=== PATIENT | female | born 1935 | race Caucasian/White ===

== ENCOUNTER 2017-09-21 16:11 | Emergency (ER) | payer MEDICARE, BC ==
[2017-09-21 19:06] LABS: ADD MAN DIFF? NO
[2017-09-21 19:09] LABS: BASOPHIL # 0.1 10^3/ul (0.0-0.1); EOSINOPHILS # 0.1 10^3/ul (0.0-0.5); EOSINOPHILS % 1.7 % (0.0-7.0); HEMATOCRIT 37.5 % (37.0-47.0); HEMOGLOBIN 12.6 g/dl (12.0-16.0); LYMPHOCYTES # 2.3 10^3/ul (0.8-2.9); LYMPHOCYTES % 32.3 % (15.0-51.0); MEAN CORPUSCULAR HEMOGLOBIN 32.6 pg (29.0-33.0); MEAN CORPUSCULAR HGB CONC 33.6 g/dl (32.0-37.0); MEAN CORPUSCULAR VOLUME 97.2 fl (82.0-101.0); MEAN PLATELET VOLUME 11.7 fl (7.4-10.4); MONOCYTE # 0.9 10^3/ul (0.3-0.9); MONOCYTES % 12.5 % (0.0-11.0); NEUTROPHIL # 3.7 10^3/ul (1.6-7.5); NEUTROPHILS % 52.2 % (39.0-77.0); PLATELET COUNT 168 10^3/UL (140-415); RED BLOOD COUNT 3.86 10^6/ul (4.20-5.40); RED CELL DISTRIBUTION WIDTH 14.1 % (11.5-14.5)
[2017-09-21 19:25] LABS: INR 1.11; PROTIME 14.5 Sec (11.9-14.9); PT RATIO 1.1
[2017-09-21 19:26] LABS: ANION GAP 18 (8-16); BLOOD UREA NITROGEN 27 mg/dl (7-20); CALCIUM 9.6 mg/dl (8.4-10.2); CARBON DIOXIDE 27 mmol/L (21-31); CHLORIDE 99 mmol/L (97-110); CREATININE 1.33 mg/dl (0.44-1.00); GLUCOSE 107 mg/dl (70-220); POTASSIUM 3.9 mmol/L (3.5-5.1); SODIUM 140 mmol/L (135-144)
[2017-09-21 19:38] LABS: B-TYPE NATRIURETIC PEPTIDE 494 PG/ML (0-450)
[2017-09-21 19:53] LABS: TROPONIN-I < 0.012 ng/ml (0.00-0.12)
== END 2017-09-21 20:46 | disposition home or self-care (01) ==
LOC: E/R 16:11
DX: R06.00 Dyspnea, unspecified (principal); I25.10 Atherosclerotic heart disease of native coronary artery without angina pectoris; I10 Essential (primary) hypertension
CPT/HCPCS: 36415; 71045; 80048; 83880; 84484; 85025; 85610; 85730; 93005; 99285-25

== ENCOUNTER 2017-09-22 14:49 | Observation (INO) | payer MEDICARE, BC ==
[2017-09-22] MEDS ORDERED: ACETAMINOPHEN 325 MG TAB PO (17:00)
[2017-09-22] MEDS ORDERED: ONDANSETRON 4 MG INJ IV (17:00)
[2017-09-22 17:03] LABS: ADD MAN DIFF? NO
[2017-09-22 17:09] LABS: WHITE BLOOD COUNT 7.1 10^3/ul (4.8-10.8)
[2017-09-22 17:09] LABS: BASOPHIL # 0.1 10^3/ul (0.0-0.1); EOSINOPHILS # 0.1 10^3/ul (0.0-0.5); EOSINOPHILS % 1.7 % (0.0-7.0); HEMATOCRIT 37.7 % (37.0-47.0); HEMOGLOBIN 12.6 g/dl (12.0-16.0); LYMPHOCYTES # 2.1 10^3/ul (0.8-2.9); LYMPHOCYTES % 29.7 % (15.0-51.0); MEAN CORPUSCULAR HEMOGLOBIN 32.6 pg (29.0-33.0); MEAN CORPUSCULAR HGB CONC 33.4 g/dl (32.0-37.0); MEAN CORPUSCULAR VOLUME 97.7 fl (82.0-101.0); MONOCYTE # 0.9 10^3/ul (0.3-0.9); MONOCYTES % 12.4 % (0.0-11.0); NEUTROPHIL # 3.9 10^3/ul (1.6-7.5); NEUTROPHILS % 54.9 % (39.0-77.0); PLATELET COUNT 171 10^3/UL (140-415); RED BLOOD COUNT 3.86 10^6/ul (4.20-5.40); RED CELL DISTRIBUTION WIDTH 14.3 % (11.5-14.5)
[2017-09-22] MEDS: SOD CHLORIDE 0.9% 1,000 ML IV (17:21)
[2017-09-22 17:26] LABS: ANION GAP 16 (8-16); BLOOD UREA NITROGEN 27 mg/dl (7-20); CALCIUM 9.8 mg/dl (8.4-10.2); CARBON DIOXIDE 30 mmol/L (21-31); CHLORIDE 99 mmol/L (97-110); CREATININE 1.42 mg/dl (0.44-1.00); GLUCOSE 105 mg/dl (70-220); POTASSIUM 3.8 mmol/L (3.5-5.1); SODIUM 141 mmol/L (135-144)
[2017-09-22] MEDS: ASPIRIN (EC) 81 MG TAB PO (17:30)
[2017-09-22] MEDS ORDERED: ONDANSETRON 4 MG TAB PO (17:30)
[2017-09-22] MEDS ORDERED: DOCUSATE SODIUM 100 MG CAP PO (17:30)
[2017-09-22] MEDS ORDERED: HYDROCODONE/APAP (5/325) TAB PO (17:30)
[2017-09-22] MEDS ORDERED: NACL 0.9% 3 ML SYG IV (17:30)
[2017-09-22] MEDS ORDERED: LORAZEPAM 0.5 MG TAB PO (17:30)
[2017-09-22 17:49] LABS: TROPONIN-I < 0.012 ng/ml (0.00-0.12)
[2017-09-22] MEDS: RANITIDINE 150 MG TAB PO (21:00)
[2017-09-22] MEDS ORDERED: METOPROLOL (XL) 100 MG TAB PO (21:00)
[2017-09-22] MEDS: ATORVASTATIN 20 MG TAB PO (21:25)
[2017-09-22] MEDS: GABAPENTIN 300 MG CAP PO (21:26)
[2017-09-22] MEDS: METOPROLOL (XL) 50 MG TAB PO (21:30)
[2017-09-22] MEDS: ZOLPIDEM 5 MG TAB PO (21:32)
[2017-09-23] MEDS: traMADol 50 MG TAB PO (00:41)
[2017-09-23] MEDS: ACETAMINOPHEN 325 MG TAB PO (05:35)
[2017-09-23] MEDS: METOPROLOL (XL) 25 MG TAB PO ×2 (09:00→20:49)
[2017-09-23] MEDS: AMLODIPINE 2.5 MG TAB PO (09:00)
[2017-09-23 09:14] LABS: ADD MAN DIFF? NO
[2017-09-23 09:17] LABS: WHITE BLOOD COUNT 6.5 10^3/ul (4.8-10.8)
[2017-09-23 09:17] LABS: BASOPHIL # 0.1 10^3/ul (0.0-0.1); BASOPHILS % 1.1 % (0.0-2.0); EOSINOPHILS # 0.2 10^3/ul (0.0-0.5); EOSINOPHILS % 3.4 % (0.0-7.0); HEMATOCRIT 34.8 % (37.0-47.0); HEMOGLOBIN 11.7 g/dl (12.0-16.0); LYMPHOCYTES # 1.7 10^3/ul (0.8-2.9); LYMPHOCYTES % 25.3 % (15.0-51.0); MEAN CORPUSCULAR HEMOGLOBIN 33.3 pg (29.0-33.0); MEAN CORPUSCULAR HGB CONC 33.6 g/dl (32.0-37.0); MEAN CORPUSCULAR VOLUME 99.1 fl (82.0-101.0); MEAN PLATELET VOLUME 11.8 fl (7.4-10.4); MONOCYTE # 0.9 10^3/ul (0.3-0.9); MONOCYTES % 14.4 % (0.0-11.0); NEUTROPHIL # 3.6 10^3/ul (1.6-7.5); NEUTROPHILS % 55.5 % (39.0-77.0); PLATELET COUNT 146 10^3/UL (140-415); RED BLOOD COUNT 3.51 10^6/ul (4.20-5.40); RED CELL DISTRIBUTION WIDTH 14.4 % (11.5-14.5)
[2017-09-23 09:40] LABS: ALANINE AMINOTRANSFERASE 23 IU/L (13-69); ALBUMIN 3.7 g/dl (3.3-4.9); ALBUMIN/GLOBULIN RATIO 1.27; ALKALINE PHOSPHATASE 114 IU/L (42-121); ANION GAP 13 (8-16); ASPARTATE AMINO TRANSFERASE 34 IU/L (15-46); BILIRUBIN,INDIRECT 0.3 mg/dl (0-1.1); BILIRUBIN,TOTAL 0.3 mg/dl (0.2-1.3); BLOOD UREA NITROGEN 27 mg/dl (7-20); CALCIUM 9.1 mg/dl (8.4-10.2); CARBON DIOXIDE 28 mmol/L (21-31); CHLORIDE 104 mmol/L (97-110); GLUCOSE 101 mg/dl (70-220); PHOSPHORUS 3.6 mg/dl (2.5-4.9); SODIUM 141 mmol/L (135-144); TOTAL PROTEIN 6.6 g/dl (6.1-8.1)
[2017-09-23] MEDS: SOD CHLORIDE 0.9% 1,000 ML IV (09:49)
[2017-09-23] MEDS: PANTOPRAZOLE (EC) 40 MG TAB PO (09:56)
[2017-09-23] MEDS: MULTIVITAMINS THERAPEUTIC TAB PO (09:56)
[2017-09-23] MEDS: BETA CAROTENE/VIT C/E/MIN TAB PO (09:56)
[2017-09-23] MEDS: ALLOPURINOL 100 MG TAB PO (09:57)
[2017-09-23 15:26] LABS: ADD UMIC NO; UR ASCORBIC ACID 40 mg/dL (NEGATIVE); UR BILIRUBIN (Dip) NEGATIVE (NEGATIVE); UR BLOOD (Dip) NEGATIVE (NEGATIVE); UR CLARITY SLIGHTLY CLOUDY (CLEAR); UR COLOR YELLOW (YELLOW); UR GLUCOSE (Dip) NEGATIVE (NEGATIVE); UR KETONES (Dip) NEGATIVE (NEGATIVE); UR LEUKOCYTE ESTERASE (Dip) NEGATIVE Leu/ul (NEGATIVE); UR NITRITE (Dip) NEGATIVE (NEGATIVE); UR RBC 0 /HPF (0-5); UR SPECIFIC GRAVITY (Dip) 1.018 (1.003-1.030); UR SQUAMOUS EPITHELIAL CELL FEW /HPF (FEW); UR TOTAL PROTEIN (Dip) NEGATIVE (NEGATIVE); UR UROBILINOGEN (Dip) NEGATIVE (NEGATIVE); UR WBC 1 /HPF (0-5)
[2017-09-23] MEDS: ATORVASTATIN 20 MG TAB PO (20:47)
[2017-09-23] MEDS: RANITIDINE 150 MG TAB PO (20:48)
[2017-09-23] MEDS: GABAPENTIN 300 MG CAP PO (20:48)
[2017-09-23] MEDS: ZOLPIDEM 5 MG TAB PO (21:38)
[2017-09-24] MEDS: SOD CHLORIDE 0.9% 1,000 ML IV (04:18)
[2017-09-24] MEDS: ASPIRIN (EC) 81 MG TAB PO (08:50)
[2017-09-24] MEDS: ALLOPURINOL 100 MG TAB PO (08:50)
[2017-09-24] MEDS: MULTIVITAMINS THERAPEUTIC TAB PO (08:50)
[2017-09-24] MEDS: BETA CAROTENE/VIT C/E/MIN TAB PO (08:50)
[2017-09-24] MEDS: AMLODIPINE 2.5 MG TAB PO (08:50)
[2017-09-24] MEDS: PANTOPRAZOLE (EC) 40 MG TAB PO (08:51)
[2017-09-24] MEDS ORDERED: METOPROLOL (XL) 25 MG TAB PO (09:00)
[2017-09-24 09:01] LABS: ADD MAN DIFF? NO
[2017-09-24 09:16] LABS: BASOPHIL # 0.1 10^3/ul (0.0-0.1); EOSINOPHILS # 0.3 10^3/ul (0.0-0.5); HEMATOCRIT 35.3 % (37.0-47.0); HEMOGLOBIN 11.7 g/dl (12.0-16.0); LYMPHOCYTES # 2.1 10^3/ul (0.8-2.9); LYMPHOCYTES % 29.8 % (15.0-51.0); MEAN CORPUSCULAR HEMOGLOBIN 33.1 pg (29.0-33.0); MEAN CORPUSCULAR HGB CONC 33.1 g/dl (32.0-37.0); MEAN PLATELET VOLUME 12.8 fl (7.4-10.4); MONOCYTES % 13.9 % (0.0-11.0); NEUTROPHIL # 3.7 10^3/ul (1.6-7.5); PLATELET COUNT 150 10^3/UL (140-415); RED BLOOD COUNT 3.53 10^6/ul (4.20-5.40); RED CELL DISTRIBUTION WIDTH 14.2 % (11.5-14.5)
[2017-09-24 09:16] LABS: WHITE BLOOD COUNT 7.2 10^3/ul (4.8-10.8)
[2017-09-24] MEDS: METOPROLOL (XL) 25 MG TAB PO ×2 (09:29→20:59)
[2017-09-24 09:41] LABS: ANION GAP 15 (8-16); BLOOD UREA NITROGEN 29 mg/dl (7-20); CALCIUM 8.8 mg/dl (8.4-10.2); CARBON DIOXIDE 26 mmol/L (21-31); CHLORIDE 106 mmol/L (97-110); CREATININE 1.13 mg/dl (0.44-1.00); GLUCOSE 88 mg/dl (70-220); PHOSPHORUS 3.5 mg/dl (2.5-4.9); POTASSIUM 4.3 mmol/L (3.5-5.1); SODIUM 143 mmol/L (135-144)
[2017-09-24] MEDS: GABAPENTIN 300 MG CAP PO (20:57)
[2017-09-24] MEDS: RANITIDINE 150 MG TAB PO (20:57)
[2017-09-24] MEDS: ATORVASTATIN 20 MG TAB PO (20:58)
[2017-09-24] MEDS: ZOLPIDEM 5 MG TAB PO (21:05)
[2017-09-25 08:01] LABS: ADD MAN DIFF? NO
[2017-09-25 08:12] LABS: WHITE BLOOD COUNT 7.2 10^3/ul (4.8-10.8)
[2017-09-25 08:12] LABS: BASOPHIL # 0.1 10^3/ul (0.0-0.1); BASOPHILS % 1.1 % (0.0-2.0); EOSINOPHILS # 0.3 10^3/ul (0.0-0.5); EOSINOPHILS % 4.1 % (0.0-7.0); HEMATOCRIT 38.6 % (37.0-47.0); HEMOGLOBIN 12.7 g/dl (12.0-16.0); LYMPHOCYTES # 2.3 10^3/ul (0.8-2.9); LYMPHOCYTES % 32.7 % (15.0-51.0); MEAN CORPUSCULAR HEMOGLOBIN 33.1 pg (29.0-33.0); MEAN CORPUSCULAR HGB CONC 32.9 g/dl (32.0-37.0); MEAN CORPUSCULAR VOLUME 100.5 fl (82.0-101.0); MONOCYTE # 0.9 10^3/ul (0.3-0.9); MONOCYTES % 12.6 % (0.0-11.0); NEUTROPHIL # 3.5 10^3/ul (1.6-7.5); NEUTROPHILS % 49.4 % (39.0-77.0); PLATELET COUNT 166 10^3/UL (140-415); RED BLOOD COUNT 3.84 10^6/ul (4.20-5.40); RED CELL DISTRIBUTION WIDTH 14.2 % (11.5-14.5)
[2017-09-25 08:43] LABS: ANION GAP 14 (8-16); BLOOD UREA NITROGEN 22 mg/dl (7-20); CALCIUM 9.3 mg/dl (8.4-10.2); CARBON DIOXIDE 27 mmol/L (21-31); CHLORIDE 108 mmol/L (97-110); GLUCOSE 94 mg/dl (70-220); POTASSIUM 4.1 mmol/L (3.5-5.1); SODIUM 145 mmol/L (135-144)
[2017-09-25] MEDS ORDERED: POTASSIUM CHLORIDE (SR) 20 MEQ TAB PO (09:00)
[2017-09-25] MEDS: POTASSIUM CHLORIDE (SR) 10 MEQ TAB PO (09:25)
[2017-09-25] MEDS: ASPIRIN (EC) 81 MG TAB PO (09:25)
[2017-09-25] MEDS: AMLODIPINE 2.5 MG TAB PO (09:26)
[2017-09-25] MEDS: FUROSEMIDE 20 MG TAB PO (09:26)
[2017-09-25] MEDS: BETA CAROTENE/VIT C/E/MIN TAB PO (09:26)
[2017-09-25] MEDS: MULTIVITAMINS THERAPEUTIC TAB PO (09:26)
[2017-09-25] MEDS: PANTOPRAZOLE (EC) 40 MG TAB PO (09:26)
[2017-09-25] MEDS: ALLOPURINOL 100 MG TAB PO (09:27)
[2017-09-25] MEDS: METOPROLOL (XL) 25 MG TAB PO (09:27)
[2017-09-25] MEDS ORDERED: DONEPEZIL 5 MG TAB PO (21:00)
== END 2017-09-25 21:30 ==
LOC: E/R 14:49 → MS4 16:57
DX: R06.00 Dyspnea, unspecified (principal); G31.84 Mild cognitive impairment of uncertain or unknown etiology; I25.10 Atherosclerotic heart disease of native coronary artery without angina pectoris; E78.5 Hyperlipidemia, unspecified; M10.9 Gout, unspecified; I48.0 Paroxysmal atrial fibrillation; Z86.73 Personal history of transient ischemic attack (TIA), and cerebral infarction without residual deficits; I13.0 Hypertensive heart and chronic kidney disease with heart failure and stage 1 through stage 4 chronic kidney disease, or unspecified chronic kidney disease; N18.9 Chronic kidney disease, unspecified; I50.32 Chronic diastolic (congestive) heart failure; Z87.891 Personal history of nicotine dependence; Z95.2 Presence of prosthetic heart valve; Z88.5 Allergy status to narcotic agent; Z88.0 Allergy status to penicillin; Z79.82 Long term (current) use of aspirin
CPT/HCPCS: 36415; 70551; 80048; 80053; 81001; 81003; 82607; 83735; 84100; 84443; 84484; 85025; 93005; 93306; 93880; 93970; 97110; 97116; 97162; 97530; 99285-25; G0378

== ENCOUNTER 2018-04-03 12:02 | Observation (INO) | payer MEDICARE, BC ==
[2018-04-03 12:14] LABS: ADD MAN DIFF? NO
[2018-04-03 12:22] LABS: WHITE BLOOD COUNT 11.6 10^3/ul (4.8-10.8)
[2018-04-03 12:22] LABS: BASOPHIL # 0.1 10^3/ul (0.0-0.1); BASOPHILS % 0.5 % (0.0-2.0); EOSINOPHILS # 0.1 10^3/ul (0.0-0.5); EOSINOPHILS % 0.6 % (0.0-7.0); HEMATOCRIT 39.9 % (37.0-47.0); HEMOGLOBIN 13.2 g/dl (12.0-16.0); LYMPHOCYTES # 1.1 10^3/ul (0.8-2.9); LYMPHOCYTES % 9.3 % (15.0-51.0); MEAN CORPUSCULAR HEMOGLOBIN 31.2 pg (29.0-33.0); MEAN CORPUSCULAR HGB CONC 33.1 g/dl (32.0-37.0); MEAN CORPUSCULAR VOLUME 94.3 fl (82.0-101.0); MEAN PLATELET VOLUME 11.6 fl (7.4-10.4); MONOCYTES % 8.5 % (0.0-11.0); NEUTROPHIL # 9.4 10^3/ul (1.6-7.5); NEUTROPHILS % 80.8 % (39.0-77.0); PLATELET COUNT 184 10^3/UL (140-415); RED BLOOD COUNT 4.23 10^6/ul (4.20-5.40); RED CELL DISTRIBUTION WIDTH 14.1 % (11.5-14.5)
[2018-04-03 12:43] LABS: INR 1.11; PROTIME 14.5 Sec (11.9-14.9); PT RATIO 1.1
[2018-04-03 12:44] LABS: PARTIAL THROMBOPLASTIN TIME 25.5 Sec (23.0-35.0)
[2018-04-03] MEDS: SOD CHLORIDE 0.9% 2,050 ML IV (12:49)
[2018-04-03 12:55] LABS: ALANINE AMINOTRANSFERASE 30 IU/L (13-69); ALBUMIN 3.2 g/dl (3.3-4.9); ALBUMIN/GLOBULIN RATIO 0.91; ALKALINE PHOSPHATASE 166 IU/L (42-121); ANION GAP 6 (5-13); ASPARTATE AMINO TRANSFERASE 55 IU/L (15-46); BILIRUBIN,INDIRECT 0.9 mg/dl (0-1.1); BILIRUBIN,TOTAL 0.9 mg/dl (0.2-1.3); BLOOD UREA NITROGEN 21 mg/dl (7-20); CALCIUM 9.7 mg/dl (8.4-10.2); CARBON DIOXIDE 30 mmol/L (21-31); CHLORIDE 101 mmol/L (97-110); CREATINE KINASE 520 IU/L (23-200); GLUCOSE 109 mg/dl (70-220); SODIUM 137 mmol/L (135-144); TOTAL PROTEIN 6.7 g/dl (6.1-8.1)
[2018-04-03 13:07] LABS: CK INDEX 1.2; CK-MB 6.46 ng/ml (0.0-2.4); TROPONIN-I 0.015 ng/ml (0.000-0.120)
[2018-04-03 13:12] LABS: FREE THYROXINE INDEX (Calc) 3.78 ug/ml (0.65-3.89); T3 UPTAKE 38.6 % (23.5-40.5); T4 (THYROXINE) 9.8 ug/dl (5.5-11.0)
[2018-04-03] MEDS ORDERED: ONDANSETRON 4 MG INJ IV ×2 (14:00→14:30)
[2018-04-03] MEDS ORDERED: ACETAMINOPHEN 325 MG TAB PO (14:00)
[2018-04-03 14:15] LABS: ACETAMINOPHEN < 10.0 ug/ml (10.0-30.0); SALICYLATE < 1.0 mg/dl (5.0-30.0)
[2018-04-03 14:16] LABS: ETHANOL < 10.0 mg/dl
[2018-04-03 14:30] LABS: ADD UMIC NO; UR ASCORBIC ACID NEGATIVE (NEGATIVE); UR BILIRUBIN (Dip) NEGATIVE (NEGATIVE); UR BLOOD (Dip) NEGATIVE (NEGATIVE); UR CLARITY CLEAR (CLEAR); UR COLOR YELLOW (YELLOW); UR GLUCOSE (Dip) NEGATIVE (NEGATIVE); UR KETONES (Dip) NEGATIVE (NEGATIVE); UR LEUKOCYTE ESTERASE (Dip) NEGATIVE Leu/ul (NEGATIVE); UR NITRITE (Dip) NEGATIVE (NEGATIVE); UR SPECIFIC GRAVITY (Dip) 1.017 (1.003-1.030); UR TOTAL PROTEIN (Dip) NEGATIVE (NEGATIVE); UR UROBILINOGEN (Dip) 1+ mg/dL (NEGATIVE)
[2018-04-03] MEDS ORDERED: BISACODYL (EC) 5 MG TAB PO (14:30)
[2018-04-03] MEDS ORDERED: DOCUSATE SODIUM 100 MG CAP PO (14:30)
[2018-04-03 14:54] LABS: AMPHETAMINE/METHAMPHETAMINE Negative (NEGATIVE); BARBITURATES Negative (NEGATIVE); BENZODIAZEPINES Negative (NEGATIVE); CANNABINOIDS Negative (NEGATIVE); COCAINE Negative (NEGATIVE); OPIATES Negative (NEGATIVE)
[2018-04-03 16:40] LABS: LACTIC ACID 2.1 mmol/L (0.5-2.0)
[2018-04-03] MEDS: PANTOPRAZOLE (EC) 40 MG TAB PO (18:42)
[2018-04-03] MEDS: ASPIRIN (EC) 81 MG TAB PO (18:42)
[2018-04-03] MEDS ORDERED: HEPARIN 5,000 UNIT/0.5 ML VIAL (20:34)
[2018-04-03] MEDS: SOD CHLORIDE 0.9% 1,000 ML IV (20:37)
[2018-04-03] MEDS: ATORVASTATIN 20 MG TAB PO (20:37)
[2018-04-03] MEDS: GABAPENTIN 300 MG CAP PO (20:38)
[2018-04-03] MEDS: HEPARIN SODIUM 5,000 UNIT/ML VIAL SC (20:55)
[2018-04-04 05:55] LABS: ADD MAN DIFF? NO
[2018-04-04 05:57] LABS: WHITE BLOOD COUNT 6.6 10^3/ul (4.8-10.8)
[2018-04-04 05:57] LABS: BASOPHIL # 0.1 10^3/ul (0.0-0.1); BASOPHILS % 0.9 % (0.0-2.0); EOSINOPHILS # 0.2 10^3/ul (0.0-0.5); EOSINOPHILS % 3.3 % (0.0-7.0); HEMATOCRIT 32.4 % (37.0-47.0); HEMOGLOBIN 10.7 g/dl (12.0-16.0); LYMPHOCYTES # 1.8 10^3/ul (0.8-2.9); LYMPHOCYTES % 27.3 % (15.0-51.0); MEAN CORPUSCULAR HEMOGLOBIN 31.4 pg (29.0-33.0); MEAN PLATELET VOLUME 11.9 fl (7.4-10.4); MONOCYTE # 0.7 10^3/ul (0.3-0.9); NEUTROPHIL # 3.8 10^3/ul (1.6-7.5); PLATELET COUNT 146 10^3/UL (140-415); RED BLOOD COUNT 3.41 10^6/ul (4.20-5.40); RED CELL DISTRIBUTION WIDTH 14.5 % (11.5-14.5)
[2018-04-04] MEDS: PANTOPRAZOLE (EC) 40 MG TAB PO (06:45)
[2018-04-04 06:52] LABS: ALANINE AMINOTRANSFERASE 30 IU/L (13-69); ALBUMIN 2.3 g/dl (3.3-4.9); ALBUMIN/GLOBULIN RATIO 0.82; ALKALINE PHOSPHATASE 108 IU/L (42-121); ANION GAP 6 (5-13); ASPARTATE AMINO TRANSFERASE 36 IU/L (15-46); BILIRUBIN,INDIRECT 0.9 mg/dl (0-1.1); BILIRUBIN,TOTAL 0.9 mg/dl (0.2-1.3); BLOOD UREA NITROGEN 16 mg/dl (7-20); CALCIUM 8.3 mg/dl (8.4-10.2); CARBON DIOXIDE 23 mmol/L (21-31); CHLORIDE 110 mmol/L (97-110); CREATININE 0.95 mg/dl (0.44-1.00); GLUCOSE 95 mg/dl (70-220); POTASSIUM 3.9 mmol/L (3.5-5.1); SODIUM 139 mmol/L (135-144); TOTAL PROTEIN 5.1 g/dl (6.1-8.1)
[2018-04-04] MEDS ORDERED: HEPARIN 5,000 UNIT/0.5 ML VIAL ×2 (08:37→20:55)
[2018-04-04] MEDS: ASPIRIN (EC) 81 MG TAB PO (08:44)
[2018-04-04] MEDS: METOPROLOL (XL) 25 MG TAB PO (08:44)
[2018-04-04] MEDS: HEPARIN SODIUM 5,000 UNIT/ML VIAL SC ×2 (08:58→21:12)
[2018-04-04] MEDS: METOPROLOL (XL) 50 MG TAB PO (12:30)
[2018-04-04] MEDS: FUROSEMIDE 40 MG TAB PO (12:30)
[2018-04-04] MEDS: ATORVASTATIN 20 MG TAB PO (20:57)
[2018-04-04] MEDS: GABAPENTIN 300 MG CAP PO (20:57)
[2018-04-04] MEDS: ZOLPIDEM 5 MG TAB PO (22:57)
[2018-04-05] MEDS: PANTOPRAZOLE (EC) 40 MG TAB PO (05:21)
[2018-04-05] MEDS ORDERED: HEPARIN 5,000 UNIT/0.5 ML VIAL ×2 (08:35→20:46)
[2018-04-05] MEDS: FUROSEMIDE 40 MG TAB PO (08:49)
[2018-04-05] MEDS: ASPIRIN (EC) 81 MG TAB PO (08:50)
[2018-04-05] MEDS: METOPROLOL (XL) 50 MG TAB PO ×2 (08:50→21:29)
[2018-04-05] MEDS: HEPARIN SODIUM 5,000 UNIT/ML VIAL SC ×2 (09:04→21:33)
[2018-04-05 09:39] LABS: ADD MAN DIFF? NO
[2018-04-05 09:41] LABS: BASOPHILS % 0.6 % (0.0-2.0); EOSINOPHILS # 0.3 10^3/ul (0.0-0.5); EOSINOPHILS % 3.8 % (0.0-7.0); HEMATOCRIT 35.1 % (37.0-47.0); HEMOGLOBIN 11.3 g/dl (12.0-16.0); LYMPHOCYTES # 1.5 10^3/ul (0.8-2.9); LYMPHOCYTES % 22.3 % (15.0-51.0); MEAN CORPUSCULAR HEMOGLOBIN 31.3 pg (29.0-33.0); MEAN CORPUSCULAR HGB CONC 32.2 g/dl (32.0-37.0); MEAN CORPUSCULAR VOLUME 97.2 fl (82.0-101.0); MEAN PLATELET VOLUME 11.3 fl (7.4-10.4); MONOCYTE # 0.7 10^3/ul (0.3-0.9); MONOCYTES % 9.7 % (0.0-11.0); NEUTROPHIL # 4.3 10^3/ul (1.6-7.5); NEUTROPHILS % 63.3 % (39.0-77.0); PLATELET COUNT 146 10^3/UL (140-415); RED BLOOD COUNT 3.61 10^6/ul (4.20-5.40); RED CELL DISTRIBUTION WIDTH 14.5 % (11.5-14.5)
[2018-04-05 09:41] LABS: WHITE BLOOD COUNT 6.8 10^3/ul (4.8-10.8)
[2018-04-05 09:59] LABS: IRON 44 ug/dl (35-150)
[2018-04-05 10:00] LABS: ANION GAP 8 (5-13); BLOOD UREA NITROGEN 17 mg/dl (7-20); CALCIUM 8.6 mg/dl (8.4-10.2); CARBON DIOXIDE 23 mmol/L (21-31); CHLORIDE 108 mmol/L (97-110); CREATININE 1.07 mg/dl (0.44-1.00); GLUCOSE 99 mg/dl (70-220); POTASSIUM 3.8 mmol/L (3.5-5.1); SODIUM 139 mmol/L (135-144)
[2018-04-05 10:08] LABS: % IRON SATURATION 16 % SAT (22-52); TOTAL IRON BINDING CAPACITY 283 ug/dl (241-421)
[2018-04-05 10:35] LABS: FERRITIN 64.1 ng/ml (11.1-264.0)
[2018-04-05 17:30] LABS: MAGNESIUM 1.5 mg/dl (1.7-2.5)
[2018-04-05] MEDS: ATORVASTATIN 20 MG TAB PO (21:28)
[2018-04-05] MEDS: GABAPENTIN 300 MG CAP PO (21:29)
[2018-04-05] MEDS: ZOLPIDEM 5 MG TAB PO (22:20)
[2018-04-06] MEDS: HYDROCODONE/APAP (5/325) TAB PO ×2 (00:27→20:58)
[2018-04-06 06:08] LABS: ADD MAN DIFF? NO
[2018-04-06 06:12] LABS: WHITE BLOOD COUNT 7.2 10^3/ul (4.8-10.8)
[2018-04-06 06:12] LABS: BASOPHIL # 0.1 10^3/ul (0.0-0.1); BASOPHILS % 1.1 % (0.0-2.0); EOSINOPHILS # 0.4 10^3/ul (0.0-0.5); HEMATOCRIT 32.6 % (37.0-47.0); HEMOGLOBIN 10.6 g/dl (12.0-16.0); LYMPHOCYTES % 27.9 % (15.0-51.0); MEAN CORPUSCULAR HEMOGLOBIN 31.3 pg (29.0-33.0); MEAN CORPUSCULAR HGB CONC 32.5 g/dl (32.0-37.0); MEAN CORPUSCULAR VOLUME 96.2 fl (82.0-101.0); MEAN PLATELET VOLUME 11.8 fl (7.4-10.4); MONOCYTE # 0.9 10^3/ul (0.3-0.9); MONOCYTES % 12.3 % (0.0-11.0); NEUTROPHIL # 3.8 10^3/ul (1.6-7.5); NEUTROPHILS % 53.3 % (39.0-77.0); PLATELET COUNT 142 10^3/UL (140-415); RED BLOOD COUNT 3.39 10^6/ul (4.20-5.40); RED CELL DISTRIBUTION WIDTH 14.4 % (11.5-14.5)
[2018-04-06] MEDS: PANTOPRAZOLE (EC) 40 MG TAB PO (06:37)
[2018-04-06 06:46] LABS: ANION GAP 7 (5-13); BLOOD UREA NITROGEN 19 mg/dl (7-20); CALCIUM 8.1 mg/dl (8.4-10.2); CARBON DIOXIDE 26 mmol/L (21-31); CHLORIDE 105 mmol/L (97-110); CREATININE 1.02 mg/dl (0.44-1.00); GLUCOSE 102 mg/dl (70-220); POTASSIUM 3.6 mmol/L (3.5-5.1); SODIUM 138 mmol/L (135-144)
[2018-04-06] MEDS ORDERED: HEPARIN 5,000 UNIT/0.5 ML VIAL ×2 (08:59→20:10)
[2018-04-06] MEDS: FUROSEMIDE 40 MG TAB PO (09:00)
[2018-04-06] MEDS: METOPROLOL (XL) 50 MG TAB PO ×2 (09:08→20:58)
[2018-04-06] MEDS: ASPIRIN (EC) 81 MG TAB PO (09:15)
[2018-04-06] MEDS: HEPARIN SODIUM 5,000 UNIT/ML VIAL SC ×2 (09:37→22:14)
[2018-04-06 10:06] LABS: FOLATE 6.1 ng/ml (2.8-20.0)
[2018-04-06] MEDS: MAGNESIUM SULFATE 3 GM in DEXTROSE 5% 100 ML IVPB (10:56)
[2018-04-06] MEDS: SOD FERRIC GLUC COMPLX 125 MG in SOD CHLORIDE 0.9% 100 ML IVPB (17:04)
[2018-04-06] MEDS: ATORVASTATIN 20 MG TAB PO (20:57)
[2018-04-06] MEDS: GABAPENTIN 300 MG CAP PO (20:57)
[2018-04-06] MEDS: ALPRAZOLAM 0.25 MG TAB PO (20:58)
[2018-04-06] MEDS: ACETAMINOPHEN 325 MG TAB PO (23:31)
[2018-04-07] MEDS: PANTOPRAZOLE (EC) 40 MG TAB PO (06:17)
[2018-04-07] MEDS ORDERED: HEPARIN 5,000 UNIT/0.5 ML VIAL (08:24)
[2018-04-07] MEDS: METOPROLOL (XL) 50 MG TAB PO (08:28)
[2018-04-07] MEDS: ASPIRIN (EC) 81 MG TAB PO (08:28)
[2018-04-07] MEDS: FUROSEMIDE 40 MG TAB PO (08:28)
[2018-04-07] MEDS: HEPARIN SODIUM 5,000 UNIT/ML VIAL SC (08:43)
== END 2018-04-07 13:29 ==
LOC: E/R 12:02 → TEL 17:42
DX: R55 Syncope and collapse (principal); M62.82 Rhabdomyolysis; I47.1 Supraventricular tachycardia; I10 Essential (primary) hypertension; I48.0 Paroxysmal atrial fibrillation; E78.5 Hyperlipidemia, unspecified; M10.9 Gout, unspecified; M50.30 Other cervical disc degeneration, unspecified cervical region; M51.36 Other intervertebral disc degeneration, lumbar region; E66.9 Obesity, unspecified; Z68.31 Body mass index [BMI] 31.0-31.9, adult; I87.2 Venous insufficiency (chronic) (peripheral); D64.9 Anemia, unspecified; Z87.11 Personal history of peptic ulcer disease; Z86.73 Personal history of transient ischemic attack (TIA), and cerebral infarction without residual deficits; Z87.891 Personal history of nicotine dependence; Z95.2 Presence of prosthetic heart valve; Z96.651 Presence of right artificial knee joint
CPT/HCPCS: 36415; 70450; 70551; 71045; 72125; 72170; 73030-RT; 73510; 80048; 80053; 80307; 81003; 82550; 82553; 82607; 82728; 82746; 82962; 83540; 83605; 83735; 84436; 84443; 84479; 84484; 85025; 85610; 85730; 86320; 87040; 93005; 93306; 93880; 97110; 97116; 97162; 97530; 99285-25; G0378

== ENCOUNTER 2018-04-07 15:25 | Inpatient (IN) | payer MEDICARE, BC ==
[2018-04-07] MEDS ORDERED: MAGNESIUM HYDROXIDE 30ML CUP PO (17:30)
[2018-04-07] MEDS ORDERED: LACTULOSE 30ML CUP PO (17:30)
[2018-04-07] MEDS ORDERED: BISACODYL 10 MG SUPP PR (17:30)
[2018-04-07] MEDS ORDERED: DOCUSATE SODIUM 100 MG CAP PO (19:00)
[2018-04-07] MEDS ORDERED: traMADol 50 MG TAB PO (19:00)
[2018-04-07] MEDS ORDERED: ZOLPIDEM 5 MG TAB PO (19:00)
[2018-04-07] MEDS ORDERED: BISACODYL (EC) 5 MG TAB PO (19:00)
[2018-04-07] MEDS: DOCUSATE SODIUM 100 MG CAP PO (20:57)
[2018-04-07] MEDS: ATORVASTATIN 20 MG TAB PO (20:58)
[2018-04-07] MEDS: METOPROLOL (XL) 50 MG TAB PO (20:58)
[2018-04-07] MEDS: GABAPENTIN 300 MG CAP PO (20:59)
[2018-04-07] MEDS: SOD FERRIC GLUC COMPLX 125 MG in SOD CHLORIDE 0.9% 100 ML IVPB ×2 (20:59→21:00)
[2018-04-07] MEDS: SENNA TAB PO (20:59)
[2018-04-08 06:23] LABS: ADD UMIC YES; UR ASCORBIC ACID NEGATIVE (NEGATIVE); UR BACTERIA FEW /HPF (NONE SEEN); UR BILIRUBIN (Dip) NEGATIVE (NEGATIVE); UR BLOOD (Dip) 2+ mg/dL (NEGATIVE); UR CLARITY TURBID (CLEAR); UR COLOR YELLOW (YELLOW); UR GLUCOSE (Dip) NEGATIVE (NEGATIVE); UR KETONES (Dip) NEGATIVE (NEGATIVE); UR LEUKOCYTE ESTERASE (Dip) 3+ Leu/ul (NEGATIVE); UR NITRITE (Dip) NEGATIVE (NEGATIVE); UR NONSQUAMOUS EPITHELIAL CELL 2 /HPF (NONE SEEN); UR RBC 23 /HPF (0-5); UR SPECIFIC GRAVITY (Dip) 1.005 (1.003-1.030); UR SQUAMOUS EPITHELIAL CELL FEW /HPF (FEW); UR TOTAL PROTEIN (Dip) 1+ mg/dl (NEGATIVE); UR UROBILINOGEN (Dip) NEGATIVE (NEGATIVE); UR WBC > 182 /HPF (0-5)
[2018-04-08] MEDS: PANTOPRAZOLE (EC) 40 MG TAB PO (06:49)
[2018-04-08 08:23] LABS: ADD MAN DIFF? NO
[2018-04-08 08:27] LABS: BASOPHIL # 0.1 10^3/ul (0.0-0.1); BASOPHILS % 0.8 % (0.0-2.0); EOSINOPHILS # 0.3 10^3/ul (0.0-0.5); EOSINOPHILS % 3.7 % (0.0-7.0); HEMATOCRIT 34.2 % (37.0-47.0); HEMOGLOBIN 11.1 g/dl (12.0-16.0); LYMPHOCYTES # 1.8 10^3/ul (0.8-2.9); MEAN CORPUSCULAR HEMOGLOBIN 31.5 pg (29.0-33.0); MEAN CORPUSCULAR HGB CONC 32.5 g/dl (32.0-37.0); MEAN CORPUSCULAR VOLUME 97.2 fl (82.0-101.0); MEAN PLATELET VOLUME 12.7 fl (7.4-10.4); MONOCYTE # 0.8 10^3/ul (0.3-0.9); MONOCYTES % 8.5 % (0.0-11.0); NEUTROPHILS % 66.7 % (39.0-77.0); PLATELET COUNT 149 10^3/UL (140-415); RED BLOOD COUNT 3.52 10^6/ul (4.20-5.40); RED CELL DISTRIBUTION WIDTH 14.6 % (11.5-14.5)
[2018-04-08] MEDS ORDERED: ZOLPIDEM 5 MG TAB PO ×2 (08:30→20:00)
[2018-04-08 08:46] LABS: ALANINE AMINOTRANSFERASE 18 IU/L (13-69); ALBUMIN 2.6 g/dl (3.3-4.9); ALBUMIN/GLOBULIN RATIO 0.86; ALKALINE PHOSPHATASE 113 IU/L (42-121); ANION GAP 8 (5-13); ASPARTATE AMINO TRANSFERASE 31 IU/L (15-46); BILIRUBIN,INDIRECT 0.2 mg/dl (0-1.1); BILIRUBIN,TOTAL 0.2 mg/dl (0.2-1.3); BLOOD UREA NITROGEN 17 mg/dl (7-20); CALCIUM 8.9 mg/dl (8.4-10.2); CARBON DIOXIDE 27 mmol/L (21-31); CHLORIDE 102 mmol/L (97-110); CREATININE 1.04 mg/dl (0.44-1.00); GLUCOSE 96 mg/dl (70-220); POTASSIUM 4.1 mmol/L (3.5-5.1); SODIUM 137 mmol/L (135-144); TOTAL PROTEIN 5.6 g/dl (6.1-8.1)
[2018-04-08] MEDS: DOCUSATE SODIUM 100 MG CAP PO ×2 (09:00→21:45)
[2018-04-08] MEDS: ASPIRIN (EC) 81 MG TAB PO (10:04)
[2018-04-08] MEDS: DONEPEZIL 5 MG TAB PO (10:05)
[2018-04-08] MEDS: METOPROLOL (XL) 50 MG TAB PO ×2 (10:05→21:46)
[2018-04-08] MEDS: FUROSEMIDE 40 MG TAB PO (10:06)
[2018-04-08] MEDS: CIPROFLOXACIN 500 MG TAB PO ×2 (10:06→17:44)
[2018-04-08] MEDS: CYANOCOBALAMIN 500 MCG TAB PO (11:25)
[2018-04-08] MEDS: SOD FERRIC GLUC COMPLX 125 MG in SOD CHLORIDE 0.9% 100 ML IVPB (18:08)
[2018-04-08] MEDS: ATORVASTATIN 20 MG TAB PO (21:44)
[2018-04-08] MEDS: GABAPENTIN 300 MG CAP PO (21:45)
[2018-04-08] MEDS: SENNA TAB PO (21:45)
[2018-04-08] MEDS: ALLOPURINOL 100 MG TAB GTB (21:45)
[2018-04-08] MEDS: ZOLPIDEM 5 MG TAB PO (21:51)
[2018-04-08] MEDS: ACETAMINOPHEN 325 MG TAB PO (21:52)
[2018-04-09] MEDS: PANTOPRAZOLE (EC) 40 MG TAB PO (06:29)
[2018-04-09] MEDS: CIPROFLOXACIN 500 MG TAB PO ×2 (06:29→18:01)
[2018-04-09 07:01] LABS: ADD MAN DIFF? NO
[2018-04-09 07:10] LABS: BASOPHIL # 0.1 10^3/ul (0.0-0.1); BASOPHILS % 1.4 % (0.0-2.0); EOSINOPHILS # 0.3 10^3/ul (0.0-0.5); EOSINOPHILS % 4.4 % (0.0-7.0); HEMATOCRIT 36.5 % (37.0-47.0); LYMPHOCYTES % 28.3 % (15.0-51.0); MEAN CORPUSCULAR HEMOGLOBIN 31.4 pg (29.0-33.0); MEAN CORPUSCULAR HGB CONC 32.9 g/dl (32.0-37.0); MEAN CORPUSCULAR VOLUME 95.5 fl (82.0-101.0); MEAN PLATELET VOLUME 12.4 fl (7.4-10.4); MONOCYTES % 13.2 % (0.0-11.0); NEUTROPHIL # 3.8 10^3/ul (1.6-7.5); NEUTROPHILS % 52.1 % (39.0-77.0); PLATELET COUNT 170 10^3/UL (140-415); RED BLOOD COUNT 3.82 10^6/ul (4.20-5.40); RED CELL DISTRIBUTION WIDTH 14.5 % (11.5-14.5)
[2018-04-09 07:10] LABS: WHITE BLOOD COUNT 7.2 10^3/ul (4.8-10.8)
[2018-04-09 07:28] LABS: ANION GAP 9 (5-13); BLOOD UREA NITROGEN 20 mg/dl (7-20); CARBON DIOXIDE 26 mmol/L (21-31); CHLORIDE 100 mmol/L (97-110); CREATININE 0.95 mg/dl (0.44-1.00); GLUCOSE 84 mg/dl (70-220); MAGNESIUM 1.9 mg/dl (1.7-2.5); PHOSPHORUS 4.3 mg/dl (2.5-4.9); POTASSIUM 4.5 mmol/L (3.5-5.1); SODIUM 135 mmol/L (135-144)
[2018-04-09] MEDS: ASPIRIN (EC) 81 MG TAB PO (09:47)
[2018-04-09] MEDS: METOPROLOL (XL) 50 MG TAB PO ×2 (09:48→20:44)
[2018-04-09] MEDS: CYANOCOBALAMIN 500 MCG TAB PO (09:48)
[2018-04-09] MEDS: DOCUSATE SODIUM 100 MG CAP PO ×2 (09:48→20:49)
[2018-04-09] MEDS: ALLOPURINOL 100 MG TAB GTB ×2 (09:48→20:44)
[2018-04-09] MEDS: FUROSEMIDE 40 MG TAB PO (09:48)
[2018-04-09] MEDS: DONEPEZIL 5 MG TAB PO (10:00)
[2018-04-09] MEDS: FERROUS FUMARATE (SR) TAB PO ×2 (10:00→20:44)
[2018-04-09] MEDS: ATORVASTATIN 20 MG TAB PO (20:43)
[2018-04-09] MEDS: GABAPENTIN 300 MG CAP PO (20:44)
[2018-04-09] MEDS: SENNA TAB PO (20:49)
[2018-04-09] MEDS: ZOLPIDEM 5 MG TAB PO (21:38)
[2018-04-10] MEDS: PANTOPRAZOLE (EC) 40 MG TAB PO (05:30)
[2018-04-10] MEDS: CIPROFLOXACIN 500 MG TAB PO ×2 (05:30→17:48)
[2018-04-10] MEDS: CYANOCOBALAMIN 500 MCG TAB PO (09:28)
[2018-04-10] MEDS: DOCUSATE SODIUM 100 MG CAP PO ×2 (09:28→20:43)
[2018-04-10] MEDS: FERROUS FUMARATE (SR) TAB PO ×2 (09:28→20:40)
[2018-04-10] MEDS: ASPIRIN (EC) 81 MG TAB PO (09:28)
[2018-04-10] MEDS: DONEPEZIL 5 MG TAB PO (09:28)
[2018-04-10] MEDS: ALLOPURINOL 100 MG TAB GTB ×2 (09:28→20:40)
[2018-04-10] MEDS: METOPROLOL (XL) 50 MG TAB PO ×2 (09:29→20:43)
[2018-04-10] MEDS: FUROSEMIDE 40 MG TAB PO (09:34)
[2018-04-10] MEDS: ATORVASTATIN 20 MG TAB PO (20:40)
[2018-04-10] MEDS: GABAPENTIN 300 MG CAP PO (20:40)
[2018-04-10] MEDS: SENNA TAB PO (20:43)
[2018-04-10] MEDS: ZOLPIDEM 5 MG TAB PO (21:46)
[2018-04-11] MEDS: PANTOPRAZOLE (EC) 40 MG TAB PO (06:28)
[2018-04-11] MEDS: CIPROFLOXACIN 500 MG TAB PO ×2 (06:28→17:38)
[2018-04-11] MEDS: DOCUSATE SODIUM 100 MG CAP PO ×2 (09:00→20:38)
[2018-04-11] MEDS: DONEPEZIL 5 MG TAB PO (09:33)
[2018-04-11] MEDS: ALLOPURINOL 100 MG TAB GTB ×2 (09:33→20:37)
[2018-04-11] MEDS: ASPIRIN (EC) 81 MG TAB PO (09:34)
[2018-04-11] MEDS: FERROUS FUMARATE (SR) TAB PO ×2 (09:34→20:37)
[2018-04-11] MEDS: FUROSEMIDE 40 MG TAB PO (09:35)
[2018-04-11] MEDS: METOPROLOL (XL) 50 MG TAB PO ×2 (09:35→20:37)
[2018-04-11] MEDS: CYANOCOBALAMIN 500 MCG TAB PO (09:36)
[2018-04-11] MEDS: GABAPENTIN 300 MG CAP PO (20:37)
[2018-04-11] MEDS: ATORVASTATIN 20 MG TAB PO (20:37)
[2018-04-11] MEDS: SENNA TAB PO (20:38)
[2018-04-11] MEDS: ZOLPIDEM 5 MG TAB PO (22:19)
[2018-04-12] MEDS: ALPRAZOLAM 0.25 MG TAB PO (01:22)
[2018-04-12] MEDS: PANTOPRAZOLE (EC) 40 MG TAB PO (06:41)
[2018-04-12] MEDS: CIPROFLOXACIN 500 MG TAB PO ×2 (06:41→17:45)
[2018-04-12] MEDS: FERROUS FUMARATE (SR) TAB PO ×2 (09:26→22:19)
[2018-04-12] MEDS: FUROSEMIDE 40 MG TAB PO (09:26)
[2018-04-12] MEDS: DONEPEZIL 5 MG TAB PO (09:26)
[2018-04-12] MEDS: METOPROLOL (XL) 50 MG TAB PO ×2 (09:26→22:22)
[2018-04-12] MEDS: ASPIRIN (EC) 81 MG TAB PO (09:27)
[2018-04-12] MEDS: ALLOPURINOL 100 MG TAB GTB ×2 (09:27→22:21)
[2018-04-12] MEDS: DOCUSATE SODIUM 100 MG CAP PO ×2 (09:27→22:19)
[2018-04-12] MEDS: CYANOCOBALAMIN 500 MCG TAB PO (10:35)
[2018-04-12] MEDS: FLUCONAZOLE 150 MG TAB PO (10:35)
[2018-04-12] MEDS: GABAPENTIN 300 MG CAP PO (22:19)
[2018-04-12] MEDS: ATORVASTATIN 20 MG TAB PO (22:19)
[2018-04-12] MEDS: SENNA TAB PO (22:20)
[2018-04-12] MEDS: ZOLPIDEM 5 MG TAB PO (22:22)
[2018-04-12] MEDS: ACETAMINOPHEN 325 MG TAB PO (22:37)
[2018-04-13] MEDS: CIPROFLOXACIN 500 MG TAB PO ×2 (05:57→18:45)
[2018-04-13] MEDS: PANTOPRAZOLE (EC) 40 MG TAB PO (05:57)
[2018-04-13 07:06] LABS: ADD MAN DIFF? NO
[2018-04-13 07:09] LABS: WHITE BLOOD COUNT 5.6 10^3/ul (4.8-10.8)
[2018-04-13 07:09] LABS: BASOPHIL # 0.1 10^3/ul (0.0-0.1); BASOPHILS % 1.2 % (0.0-2.0); EOSINOPHILS # 0.3 10^3/ul (0.0-0.5); EOSINOPHILS % 5.3 % (0.0-7.0); HEMATOCRIT 31.8 % (37.0-47.0); HEMOGLOBIN 10.6 g/dl (12.0-16.0); LYMPHOCYTES # 1.7 10^3/ul (0.8-2.9); MEAN CORPUSCULAR HEMOGLOBIN 31.7 pg (29.0-33.0); MEAN CORPUSCULAR HGB CONC 33.3 g/dl (32.0-37.0); MEAN CORPUSCULAR VOLUME 95.2 fl (82.0-101.0); MEAN PLATELET VOLUME 11.7 fl (7.4-10.4); MONOCYTES % 17.2 % (0.0-11.0); NEUTROPHIL # 2.5 10^3/ul (1.6-7.5); NEUTROPHILS % 45.2 % (39.0-77.0); PLATELET COUNT 180 10^3/UL (140-415); RED BLOOD COUNT 3.34 10^6/ul (4.20-5.40); RED CELL DISTRIBUTION WIDTH 14.2 % (11.5-14.5)
[2018-04-13 07:43] LABS: ANION GAP 8 (5-13); BLOOD UREA NITROGEN 20 mg/dl (7-20); CALCIUM 8.6 mg/dl (8.4-10.2); CARBON DIOXIDE 28 mmol/L (21-31); CHLORIDE 94 mmol/L (97-110); CREATININE 1.02 mg/dl (0.44-1.00); GLUCOSE 87 mg/dl (70-220); MAGNESIUM 1.8 mg/dl (1.7-2.5); POTASSIUM 4.1 mmol/L (3.5-5.1); SODIUM 130 mmol/L (135-144)
[2018-04-13] MEDS: DOCUSATE SODIUM 100 MG CAP PO ×2 (09:00→22:02)
[2018-04-13] MEDS: ASPIRIN (EC) 81 MG TAB PO (10:34)
[2018-04-13] MEDS: FERROUS FUMARATE (SR) TAB PO ×2 (10:34→22:02)
[2018-04-13] MEDS: DONEPEZIL 5 MG TAB PO (10:36)
[2018-04-13] MEDS: CYANOCOBALAMIN 500 MCG TAB PO (10:36)
[2018-04-13] MEDS: ALLOPURINOL 100 MG TAB GTB ×2 (10:37→22:02)
[2018-04-13] MEDS: METOPROLOL (XL) 50 MG TAB PO ×2 (10:37→22:03)
[2018-04-13] MEDS: SOD CHLORIDE 0.9% 1,000 ML IV (12:06)
[2018-04-13 12:47] LABS: ADD UMIC NO; UR ASCORBIC ACID NEGATIVE (NEGATIVE); UR BILIRUBIN (Dip) NEGATIVE (NEGATIVE); UR BLOOD (Dip) NEGATIVE (NEGATIVE); UR CLARITY CLEAR (CLEAR); UR COLOR YELLOW (YELLOW); UR GLUCOSE (Dip) NEGATIVE (NEGATIVE); UR KETONES (Dip) NEGATIVE (NEGATIVE); UR LEUKOCYTE ESTERASE (Dip) NEGATIVE Leu/ul (NEGATIVE); UR NITRITE (Dip) NEGATIVE (NEGATIVE); UR SPECIFIC GRAVITY (Dip) 1.013 (1.003-1.030); UR TOTAL PROTEIN (Dip) NEGATIVE (NEGATIVE); UR UROBILINOGEN (Dip) NEGATIVE (NEGATIVE)
[2018-04-13 14:14] LABS: SODIUM,URINE RANDOM 59 mmol/L (30-90)
[2018-04-13] MEDS: SENNA TAB PO (22:02)
[2018-04-13] MEDS: ATORVASTATIN 20 MG TAB PO (22:02)
[2018-04-13] MEDS: GABAPENTIN 300 MG CAP PO (22:03)
[2018-04-13] MEDS: ZOLPIDEM 5 MG TAB PO (22:10)
[2018-04-13] MEDS: ACETAMINOPHEN 325 MG TAB PO (22:11)
[2018-04-14] MEDS: SOD CHLORIDE 0.9% 1,000 ML IV (01:53)
[2018-04-14] MEDS: PANTOPRAZOLE (EC) 40 MG TAB PO (06:49)
[2018-04-14 07:02] LABS: ADD MAN DIFF? NO
[2018-04-14 07:05] LABS: WHITE BLOOD COUNT 5.7 10^3/ul (4.8-10.8)
[2018-04-14 07:05] LABS: BASOPHIL # 0.1 10^3/ul (0.0-0.1); BASOPHILS % 1.4 % (0.0-2.0); EOSINOPHILS # 0.3 10^3/ul (0.0-0.5); EOSINOPHILS % 5.1 % (0.0-7.0); HEMATOCRIT 30.8 % (37.0-47.0); HEMOGLOBIN 10.2 g/dl (12.0-16.0); LYMPHOCYTES # 1.8 10^3/ul (0.8-2.9); LYMPHOCYTES % 31.8 % (15.0-51.0); MEAN CORPUSCULAR HEMOGLOBIN 31.2 pg (29.0-33.0); MEAN CORPUSCULAR HGB CONC 33.1 g/dl (32.0-37.0); MEAN CORPUSCULAR VOLUME 94.2 fl (82.0-101.0); MEAN PLATELET VOLUME 11.8 fl (7.4-10.4); MONOCYTE # 0.9 10^3/ul (0.3-0.9); MONOCYTES % 15.5 % (0.0-11.0); NEUTROPHIL # 2.6 10^3/ul (1.6-7.5); NEUTROPHILS % 45.3 % (39.0-77.0); PLATELET COUNT 175 10^3/UL (140-415); RED BLOOD COUNT 3.27 10^6/ul (4.20-5.40); RED CELL DISTRIBUTION WIDTH 14.4 % (11.5-14.5)
[2018-04-14 07:23] LABS: ANION GAP 8 (5-13); BLOOD UREA NITROGEN 19 mg/dl (7-20); CALCIUM 8.5 mg/dl (8.4-10.2); CARBON DIOXIDE 26 mmol/L (21-31); CHLORIDE 97 mmol/L (97-110); CREATININE 0.94 mg/dl (0.44-1.00); GLUCOSE 85 mg/dl (70-220); MAGNESIUM 1.8 mg/dl (1.7-2.5); PHOSPHORUS 3.9 mg/dl (2.5-4.9); POTASSIUM 4.3 mmol/L (3.5-5.1); SODIUM 131 mmol/L (135-144)
[2018-04-14] MEDS: CYANOCOBALAMIN 500 MCG TAB PO (11:01)
[2018-04-14] MEDS: FERROUS FUMARATE (SR) TAB PO ×2 (11:01→20:28)
[2018-04-14] MEDS: DOCUSATE SODIUM 100 MG CAP PO ×2 (11:01→20:28)
[2018-04-14] MEDS: DONEPEZIL 5 MG TAB PO (11:01)
[2018-04-14] MEDS: ALLOPURINOL 100 MG TAB GTB ×2 (11:01→20:28)
[2018-04-14] MEDS: METOPROLOL (XL) 50 MG TAB PO ×2 (11:02→20:33)
[2018-04-14] MEDS: ASPIRIN (EC) 81 MG TAB PO (11:02)
[2018-04-14] MEDS: LEVOTHYROXINE 25 MCG TAB PO (11:12)
[2018-04-14] MEDS: ATORVASTATIN 20 MG TAB PO (20:28)
[2018-04-14] MEDS: SENNA TAB PO (20:28)
[2018-04-14] MEDS: GABAPENTIN 300 MG CAP PO (20:28)
[2018-04-14] MEDS: ZOLPIDEM 5 MG TAB PO (22:49)
[2018-04-15] MEDS: LEVOTHYROXINE 25 MCG TAB PO (06:27)
[2018-04-15] MEDS: PANTOPRAZOLE (EC) 40 MG TAB PO (06:27)
[2018-04-15 07:17] LABS: ADD MAN DIFF? NO
[2018-04-15 07:19] LABS: BASOPHIL # 0.1 10^3/ul (0.0-0.1); BASOPHILS % 1.1 % (0.0-2.0); EOSINOPHILS # 0.3 10^3/ul (0.0-0.5); EOSINOPHILS % 4.8 % (0.0-7.0); HEMATOCRIT 35.1 % (37.0-47.0); HEMOGLOBIN 11.6 g/dl (12.0-16.0); LYMPHOCYTES % 32.5 % (15.0-51.0); MEAN CORPUSCULAR HEMOGLOBIN 31.5 pg (29.0-33.0); MEAN CORPUSCULAR VOLUME 95.4 fl (82.0-101.0); MEAN PLATELET VOLUME 11.5 fl (7.4-10.4); MONOCYTE # 0.7 10^3/ul (0.3-0.9); MONOCYTES % 11.2 % (0.0-11.0); NEUTROPHIL # 3.1 10^3/ul (1.6-7.5); NEUTROPHILS % 49.8 % (39.0-77.0); PLATELET COUNT 202 10^3/UL (140-415); RED BLOOD COUNT 3.68 10^6/ul (4.20-5.40); RED CELL DISTRIBUTION WIDTH 14.2 % (11.5-14.5)
[2018-04-15 07:19] LABS: WHITE BLOOD COUNT 6.3 10^3/ul (4.8-10.8)
[2018-04-15 07:44] LABS: ANION GAP 10 (5-13); BLOOD UREA NITROGEN 18 mg/dl (7-20); CALCIUM 8.8 mg/dl (8.4-10.2); CARBON DIOXIDE 23 mmol/L (21-31); CHLORIDE 98 mmol/L (97-110); CREATININE 0.78 mg/dl (0.44-1.00); GLUCOSE 94 mg/dl (70-220); POTASSIUM 4.1 mmol/L (3.5-5.1); SODIUM 131 mmol/L (135-144)
[2018-04-15] MEDS: ALLOPURINOL 100 MG TAB GTB ×2 (08:50→21:10)
[2018-04-15] MEDS: DOCUSATE SODIUM 100 MG CAP PO ×2 (08:50→21:10)
[2018-04-15] MEDS: METOPROLOL (XL) 50 MG TAB PO ×2 (08:50→21:16)
[2018-04-15] MEDS: FERROUS FUMARATE (SR) TAB PO ×2 (08:50→21:13)
[2018-04-15] MEDS: ASPIRIN (EC) 81 MG TAB PO (08:51)
[2018-04-15] MEDS: CYANOCOBALAMIN 500 MCG TAB PO (08:51)
[2018-04-15] MEDS: SENNA TAB PO (21:10)
[2018-04-15] MEDS: ATORVASTATIN 20 MG TAB PO (21:10)
[2018-04-15] MEDS: GABAPENTIN 300 MG CAP PO (21:13)
[2018-04-16] MEDS: PANTOPRAZOLE (EC) 40 MG TAB PO (06:38)
[2018-04-16] MEDS: LEVOTHYROXINE 25 MCG TAB PO (06:38)
[2018-04-16 08:16] LABS: ANION GAP 8 (5-13); BLOOD UREA NITROGEN 17 mg/dl (7-20); CALCIUM 8.7 mg/dl (8.4-10.2); CARBON DIOXIDE 24 mmol/L (21-31); CHLORIDE 98 mmol/L (97-110); CREATININE 0.75 mg/dl (0.44-1.00); GLUCOSE 81 mg/dl (70-220); SODIUM 130 mmol/L (135-144)
[2018-04-16 08:19] LABS: PHOSPHORUS 4.2 mg/dl (2.5-4.9)
[2018-04-16 08:19] LABS: MAGNESIUM 1.9 mg/dl (1.7-2.5)
[2018-04-16 08:35] LABS: POTASSIUM 4.9 mmol/L (3.5-5.1)
[2018-04-16] MEDS: FERROUS FUMARATE (SR) TAB PO ×2 (08:41→20:11)
[2018-04-16] MEDS: CYANOCOBALAMIN 500 MCG TAB PO (08:41)
[2018-04-16] MEDS: ALLOPURINOL 100 MG TAB GTB ×2 (08:41→20:11)
[2018-04-16] MEDS: METOPROLOL (XL) 50 MG TAB PO ×2 (08:41→20:13)
[2018-04-16] MEDS: DOCUSATE SODIUM 100 MG CAP PO ×2 (08:41→20:11)
[2018-04-16] MEDS: ASPIRIN (EC) 81 MG TAB PO (08:41)
[2018-04-16 13:15] LABS: SODIUM,URINE RANDOM 73 mmol/L (30-90)
[2018-04-16] MEDS: SENNA TAB PO (20:11)
[2018-04-16] MEDS: GABAPENTIN 300 MG CAP PO (20:11)
[2018-04-16] MEDS: ATORVASTATIN 20 MG TAB PO (20:11)
[2018-04-16] MEDS: ZOLPIDEM 5 MG TAB PO (21:29)
[2018-04-17] MEDS: ACETAMINOPHEN 325 MG TAB PO (01:15)
[2018-04-17] MEDS: LEVOTHYROXINE 25 MCG TAB PO (06:14)
[2018-04-17] MEDS: PANTOPRAZOLE (EC) 40 MG TAB PO (06:14)
[2018-04-17] MEDS: FERROUS FUMARATE (SR) TAB PO ×2 (08:25→20:50)
[2018-04-17] MEDS: CYANOCOBALAMIN 500 MCG TAB PO (08:25)
[2018-04-17] MEDS: ASPIRIN (EC) 81 MG TAB PO (08:25)
[2018-04-17] MEDS: DOCUSATE SODIUM 100 MG CAP PO ×2 (08:25→20:52)
[2018-04-17] MEDS: ALLOPURINOL 100 MG TAB GTB ×2 (08:25→20:50)
[2018-04-17] MEDS: METOPROLOL (XL) 50 MG TAB PO ×2 (08:26→20:52)
[2018-04-17] MEDS: ATORVASTATIN 20 MG TAB PO (20:50)
[2018-04-17] MEDS: GABAPENTIN 300 MG CAP PO (20:50)
[2018-04-17] MEDS: SENNA TAB PO (20:52)
[2018-04-17] MEDS: ZOLPIDEM 5 MG TAB PO (22:03)
[2018-04-18] MEDS: LEVOTHYROXINE 25 MCG TAB PO (05:30)
[2018-04-18] MEDS: PANTOPRAZOLE (EC) 40 MG TAB PO (05:30)
[2018-04-18] MEDS: ASPIRIN (EC) 81 MG TAB PO (08:04)
[2018-04-18] MEDS: DOCUSATE SODIUM 100 MG CAP PO ×2 (08:04→20:39)
[2018-04-18] MEDS: ALLOPURINOL 100 MG TAB GTB ×2 (08:04→20:36)
[2018-04-18] MEDS: CYANOCOBALAMIN 500 MCG TAB PO (08:04)
[2018-04-18] MEDS: FERROUS FUMARATE (SR) TAB PO ×2 (08:04→21:22)
[2018-04-18] MEDS: METOPROLOL (XL) 50 MG TAB PO ×2 (08:05→20:37)
[2018-04-18] MEDS: GABAPENTIN 300 MG CAP PO (20:36)
[2018-04-18] MEDS: SENNA TAB PO (20:38)
[2018-04-18] MEDS: ATORVASTATIN 20 MG TAB PO (20:39)
[2018-04-18] MEDS: ZOLPIDEM 5 MG TAB PO (21:37)
[2018-04-19] MEDS: LEVOTHYROXINE 25 MCG TAB PO (06:09)
[2018-04-19] MEDS: PANTOPRAZOLE (EC) 40 MG TAB PO (06:09)
[2018-04-19 06:51] LABS: ANION GAP 6 (5-13); BLOOD UREA NITROGEN 14 mg/dl (7-20); CALCIUM 8.3 mg/dl (8.4-10.2); CARBON DIOXIDE 23 mmol/L (21-31); CHLORIDE 100 mmol/L (97-110); CREATININE 0.66 mg/dl (0.44-1.00); GLUCOSE 87 mg/dl (70-220); SODIUM 129 mmol/L (135-144)
[2018-04-19 06:55] LABS: POTASSIUM 4.5 mmol/L (3.5-5.1)
[2018-04-19] MEDS: ASPIRIN (EC) 81 MG TAB PO (10:02)
[2018-04-19] MEDS: CYANOCOBALAMIN 500 MCG TAB PO (10:02)
[2018-04-19] MEDS: FERROUS FUMARATE (SR) TAB PO ×2 (10:02→21:37)
[2018-04-19] MEDS: DOCUSATE SODIUM 100 MG CAP PO ×2 (10:03→21:37)
[2018-04-19] MEDS: ALLOPURINOL 100 MG TAB GTB ×2 (10:03→21:37)
[2018-04-19] MEDS: METOPROLOL (XL) 50 MG TAB PO ×2 (10:05→21:00)
[2018-04-19 11:52] LABS: SODIUM,URINE RANDOM 109 mmol/L (30-90)
[2018-04-19] MEDS: ZOLPIDEM 5 MG TAB PO (21:37)
[2018-04-19] MEDS: GABAPENTIN 300 MG CAP PO (21:37)
[2018-04-19] MEDS: ATORVASTATIN 20 MG TAB PO (21:37)
[2018-04-19] MEDS: SENNA TAB PO (21:37)
[2018-04-19] MEDS: ACETAMINOPHEN 325 MG TAB PO (21:39)
[2018-04-20] MEDS: PANTOPRAZOLE (EC) 40 MG TAB PO (06:27)
[2018-04-20] MEDS: LEVOTHYROXINE 25 MCG TAB PO (06:27)
[2018-04-20 07:54] LABS: ADD MAN DIFF? NO
[2018-04-20 07:57] LABS: WHITE BLOOD COUNT 5.7 10^3/ul (4.8-10.8)
[2018-04-20 07:57] LABS: BASOPHIL # 0.1 10^3/ul (0.0-0.1); BASOPHILS % 1.9 % (0.0-2.0); EOSINOPHILS # 0.3 10^3/ul (0.0-0.5); EOSINOPHILS % 5.7 % (0.0-7.0); HEMATOCRIT 30.4 % (37.0-47.0); HEMOGLOBIN 10.1 g/dl (12.0-16.0); LYMPHOCYTES # 1.6 10^3/ul (0.8-2.9); LYMPHOCYTES % 28.1 % (15.0-51.0); MEAN CORPUSCULAR HEMOGLOBIN 31.2 pg (29.0-33.0); MEAN CORPUSCULAR HGB CONC 33.2 g/dl (32.0-37.0); MEAN CORPUSCULAR VOLUME 93.8 fl (82.0-101.0); MEAN PLATELET VOLUME 11.8 fl (7.4-10.4); MONOCYTE # 0.8 10^3/ul (0.3-0.9); MONOCYTES % 13.8 % (0.0-11.0); NEUTROPHIL # 2.8 10^3/ul (1.6-7.5); NEUTROPHILS % 50.1 % (39.0-77.0); PLATELET COUNT 208 10^3/UL (140-415); RED BLOOD COUNT 3.24 10^6/ul (4.20-5.40); RED CELL DISTRIBUTION WIDTH 14.6 % (11.5-14.5)
[2018-04-20 08:21] LABS: ANION GAP 7 (5-13); BLOOD UREA NITROGEN 16 mg/dl (7-20); CALCIUM 8.2 mg/dl (8.4-10.2); CARBON DIOXIDE 25 mmol/L (21-31); CHLORIDE 97 mmol/L (97-110); CREATININE 0.78 mg/dl (0.44-1.00); GLUCOSE 85 mg/dl (70-220); MAGNESIUM 1.7 mg/dl (1.7-2.5); POTASSIUM 4.7 mmol/L (3.5-5.1); SODIUM 129 mmol/L (135-144)
[2018-04-20] MEDS: CYANOCOBALAMIN 500 MCG TAB PO (08:43)
[2018-04-20] MEDS: FERROUS FUMARATE (SR) TAB PO ×2 (08:43→21:19)
[2018-04-20] MEDS: DOCUSATE SODIUM 100 MG CAP PO ×2 (08:43→21:19)
[2018-04-20] MEDS: ALLOPURINOL 100 MG TAB PO ×2 (08:43→21:19)
[2018-04-20] MEDS: ASPIRIN (EC) 81 MG TAB PO (08:43)
[2018-04-20] MEDS: METOPROLOL (XL) 25 MG TAB PO (08:44)
[2018-04-20] MEDS: FUROSEMIDE 20 MG TAB PO (08:44)
[2018-04-20] MEDS: ATORVASTATIN 20 MG TAB PO (21:19)
[2018-04-20] MEDS: GABAPENTIN 300 MG CAP PO (21:19)
[2018-04-20] MEDS: DONEPEZIL 5 MG TAB PO (21:19)
[2018-04-20] MEDS: SENNA TAB PO (21:19)
[2018-04-20] MEDS: ZOLPIDEM 5 MG TAB PO (21:19)
[2018-04-21 07:50] LABS: ANION GAP 6 (5-13); BLOOD UREA NITROGEN 19 mg/dl (7-20); CALCIUM 8.5 mg/dl (8.4-10.2); CARBON DIOXIDE 25 mmol/L (21-31); CHLORIDE 99 mmol/L (97-110); CREATININE 0.85 mg/dl (0.44-1.00); GLUCOSE 89 mg/dl (70-220); POTASSIUM 4.9 mmol/L (3.5-5.1); SODIUM 130 mmol/L (135-144)
[2018-04-21] MEDS: LEVOTHYROXINE 25 MCG TAB PO (08:47)
[2018-04-21] MEDS: PANTOPRAZOLE (EC) 40 MG TAB PO (08:48)
[2018-04-21] MEDS: FUROSEMIDE 20 MG TAB PO (08:48)
[2018-04-21] MEDS: CYANOCOBALAMIN 500 MCG TAB PO (10:19)
[2018-04-21] MEDS: METOPROLOL (XL) 25 MG TAB PO (10:19)
[2018-04-21] MEDS: DOCUSATE SODIUM 100 MG CAP PO (10:19)
[2018-04-21] MEDS: FERROUS FUMARATE (SR) TAB PO (10:20)
[2018-04-21] MEDS: ALLOPURINOL 100 MG TAB PO (10:20)
[2018-04-21] MEDS: ASPIRIN (EC) 81 MG TAB PO (10:20)
== END 2018-04-21 14:00 | disposition home health service (06) | DRG 945 ==
LOC: VRC 15:25
PROC: F07Z9FZ Gait Training/Functional Ambulation Treatment using Assistive, Adaptive, Supportive or Protective Equipment (ICD-10-PCS; principal; 2018-04-07)
PROC: F07Z8FZ Transfer Training Treatment using Assistive, Adaptive, Supportive or Protective Equipment (ICD-10-PCS; 2018-04-07)
PROC: F07Z5FZ Bed Mobility Treatment using Assistive, Adaptive, Supportive or Protective Equipment (ICD-10-PCS; 2018-04-07)
PROC: F08Z2FZ Grooming/Personal Hygiene Treatment using Assistive, Adaptive, Supportive or Protective Equipment (ICD-10-PCS; 2018-04-07)
PROC: F08Z0FZ Bathing/Showering Techniques Treatment using Assistive, Adaptive, Supportive or Protective Equipment (ICD-10-PCS; 2018-04-07)
PROC: F08Z1FZ Dressing Techniques Treatment using Assistive, Adaptive, Supportive or Protective Equipment (ICD-10-PCS; 2018-04-07)
DX: S76.011D Strain of muscle, fascia and tendon of right hip, subsequent encounter (principal); N39.0 Urinary tract infection, site not specified; E87.1 Hypo-osmolality and hyponatremia; S46.001D Unspecified injury of muscle(s) and tendon(s) of the rotator cuff of right shoulder, subsequent encounter; M12.511 Traumatic arthropathy, right shoulder; S70.01XD Contusion of right hip, subsequent encounter; D51.0 Vitamin B12 deficiency anemia due to intrinsic factor deficiency; E78.5 Hyperlipidemia, unspecified; I10 Essential (primary) hypertension; M50.30 Other cervical disc degeneration, unspecified cervical region; M51.36 Other intervertebral disc degeneration, lumbar region; M10.9 Gout, unspecified; I48.0 Paroxysmal atrial fibrillation; F06.31 Mood disorder due to known physiological condition with depressive features; G31.84 Mild cognitive impairment of uncertain or unknown etiology; E03.9 Hypothyroidism, unspecified; Z95.2 Presence of prosthetic heart valve; Z96.659 Presence of unspecified artificial knee joint; Z79.82 Long term (current) use of aspirin; Z88.0 Allergy status to penicillin; W19.XXXD Unspecified fall, subsequent encounter
CPT/HCPCS: 71250; 74176; 80048; 80053; 81001; 81003; 83735; 84100; 84300; 84443; 85025; 87081; 87086; 97110; 97112; 97116; 97150; 97163; 97167; 97530; 97535; 97542